=== PATIENT | male | born 1940 | race Two or more races ===

== ENCOUNTER 2022-10-08 13:53 | Emergency (ER) | payer OTHER ==
[~2022-10-08] VITALS: Ht 167.6 cm; Wt 95.3 kg
[2022-10-08] MEDS ORDERED: LISINOPRIL20 MG PO (14:20)
[2022-10-08] MEDS ORDERED: AMLODIPINE-OLM1 EAC2 PO (14:21)
[2022-10-08] MEDS ORDERED: METOPROLOL SUCC50 MG PO (14:21)
[2022-10-08] MEDS ORDERED: PLAVIX75 MG (14:22)
[2022-10-08] MEDS ORDERED: ISOSORBIDE MONO30 M2 PO (14:23)
[2022-10-08] MEDS ORDERED: NORVASC2.5 MG PO (14:23)
== END 2022-10-08 19:49 | disposition home or self-care (01) ==
LOC: ER 13:53
DX: J44.0 Chronic obstructive pulmonary disease with (acute) lower respiratory infection (principal); J44.1 Chronic obstructive pulmonary disease with (acute) exacerbation; Z91.013 Allergy to seafood; E11.9 Type 2 diabetes mellitus without complications; I10 Essential (primary) hypertension; J10.1 Influenza due to other identified influenza virus with other respiratory manifestations; Z20.822 Contact with and (suspected) exposure to COVID-19

== ENCOUNTER 2022-11-15 18:04 | Emergency (ER) | payer OTHER ==
[~2022-11-15] VITALS: Ht 170.2 cm; Wt 95.3 kg
[~2022-11-15 18:04] MED LIST: AMLODIPINE-OLM1 EAC2 PO; ISOSORBIDE MONO30 M2 PO; LISINOPRIL20 MG PO; METOPROLOL SUCC50 MG PO; NORVASC2.5 MG PO; PLAVIX75 MG
== END 2022-11-15 22:09 | disposition home or self-care (01) ==
LOC: ER 18:04
DX: J44.1 Chronic obstructive pulmonary disease with (acute) exacerbation (principal); R06.02 Shortness of breath; R05.9 Cough, unspecified